=== PATIENT | female | born 1960 | race Caucasian/White ===

== ENCOUNTER 2017-10-09 10:35 | Emergency (ER) | payer OTHER ==
[2017-10-09 10:44] VITALS: BP 139/70
--- NOTE | 2017-10-09 11:26 | XRAY Report ---
EXAM: CHEST RADIOGRAPHY EXAM DATE: 10/09/2017 11:16 AM. CLINICAL HISTORY: Cough. COMPARISON: None. TECHNIQUE: 2 views. FINDINGS: Lungs/Pleura: No focal consolidation evident. No pleural effusion. No pneumothorax. Normal volumes. Mediastinum: Heart and mediastinal contours are unremarkable. Other: None. IMPRESSION: No radiographically apparent acute abnormality in the chest. [facility] Referring Provider Line: [phone] SITE ID: [id number]
--- NOTE | 2017-10-09 11:26 | XRAY Preliminary Report ---
Exam: XR CHEST 2 VIEW X-RAY IMPRESSION: No radiographically apparent acute abnormality in the chest. [facility] SITE ID: [id number]
--- NOTE | 2017-10-09 12:54 | ED Physician Documentation ---
PD HPI URI - Stated complaint Stated Complaint: COUGH/FEVER/THROAT PX - Chief complaint Chief Complaint: Resp - History obtained from History obtained from: Patient - History of Present Illness Timing - onset: How many days ago (several) Timing duration: Days Timing details: Gradual onset, Still present Associated symptoms: Nasal congestion, Dry cough, Dyspnea. No: Fever, Chills, Sore throat, Hemoptysis, Chest pain Contributing factors: COPD / asthma. No: Sick contact, Travel, Immunocompromised Similar symptoms before: Has not had sx before Recently seen: Not recently seen Review of Systems Constitutional: reports: Fever, Chills, Myalgias Nose: reports: Rhinorrhea / runny nose, Congestion Throat: reports: Sore throat Cardiac: denies: Chest pain / pressure Respiratory: reports: Dyspnea, Cough GI: reports: Nausea, Vomiting. denies: Abdominal Pain, Diarrhea : denies: Dysuria, Frequency Skin: denies: Rash, Lesions PD PAST MEDICAL HISTORY - Past Medical History Past Medical History: Yes Neuro: Headache/migraine - Past Surgical History Past Surgical History: Yes HEENT: Tonsil/Adenoidectomy - Present Medications Home Medications: Ambulatory Orders Medication Instructions Recorded Confirmed Aspirin 81 mg PO DAILY 10/09/17 10/09/17 Azithromycin [Zithromax] 250 mg PO DAILY #6 tablet 10/09/17 Beclomethasone 40 Mcg [Qvar 40] 2 puffs INH DAILY #1 inhaler 10/09/17 Benzonatate [Tessalon] 100 mg PO TID PRN #25 capsule 10/09/17 Levalbuterol [Xopenex] 2 puffs INH QID #1 inhaler 10/09/17 Levothyroxine Sodium 25 mcg PO DAILY 10/09/17 10/09/17 Montelukast Sodium 10 mg PO DAILY 10/09/17 10/09/17 - Allergies Allergies/Adverse Reactions: Allergies Allergy/AdvReac Type Severity Reaction Status Date / Time Penicillins Allergy Hives Verified 10/09/17 10:44 - Social History Does the pt smoke?: No Smoking Status: Never smoker PD ED PE NORMAL - Vitals Vital signs reviewed: Yes - General General: Alert and oriented X 3, Well developed/nourished - HEENT HEENT: Pharynx benign - Neck Neck: Supple, no meningeal sign, No adenopathy - Cardiac Cardiac: RRR, No murmur - Respiratory Respiratory: No respiratory distress, Clear bilaterally - Abdomen Abdomen: Soft, Non tender - Derm Derm: Normal color, Warm and dry - Extremities Extremities: No deformity, No tenderness to palpate, No edema, No calf tenderness / cord - Neuro Neuro: Alert and oriented X 3, No motor deficit, Normal speech Results - Vitals Vitals: Oxygen O2 Source Room air - Rads (name of study) chest Radiology: Prelim report reviewed (normal) PD MEDICAL DECISION MAKING - ED course Complexity details: reviewed results, considered differential, d/w patient Departure - Departure Disposition: Home, Self Care Clinical Impression: Upper respiratory tract infection Qualifiers: URI type: unspecified URI Qualified Code(s): J06.9 - Acute upper respiratory infection, unspecified Condition: Stable Record reviewed to determine appropriate education?: Yes Instructions: ED Upper Resp Infec Abx Tx Prescriptions: Azithromycin [Zithromax] 250 mg PO DAILY #6 tablet Beclomethasone 40 Mcg [Qvar 40] 2 puffs INH DAILY #1 inhaler Benzonatate [Tessalon] 100 mg PO TID PRN #25 capsule PRN Reason: Cough Levalbuterol [Xopenex] 2 puffs INH QID #1 inhaler Comments: Drink lots of fluids. Continue your leave albuterol inhaler 2 puffs 4 times a day to use it regularly for the next week and then back to as needed. Use the inhaled steroid daily for the next month. Add Tessalon if needed for cough. You should start feeling better over the next several days to week. Your cough will likely persist for several weeks afterward. Discharge Date/Time: 10/09/17 13:41
== END 2017-10-09 13:41 | disposition home or self-care (01) ==
LOC: ED 10:35
DX: J06.9 Acute upper respiratory infection, unspecified (principal); Z79.82 Long term (current) use of aspirin
CPT/HCPCS: 71046; 99283

== ENCOUNTER 2018-10-12 07:15 | Outpatient (CLI) | payer OTHER ==
--- NOTE | 2018-10-12 12:47 | Ultrasound Report ---
Reason: LEFT LOWER QUADRANT PAIN Procedure Date: 10/12/2018 Accession Number: [id number] / [id number] Procedure: US - Pelvic w/Transvaginal CPT Code: FULL RESULT: EXAM: PELVIC ULTRASOUND EXAM DATE: 10/12/2018 08:30 AM. CLINICAL HISTORY: Left lower quadrant pain. History of fibroids and ovarian cysts. COMPARISON: CT abdomen and pelvis w 08/31/2018 10:45 AM. TECHNIQUE: Realtime transabdominal pelvic scan performed to identify the uterus and adnexa and as an overview of other pelvic structures, followed by transvaginal scan to provide greater detail of the uterus and adnexa, with static image documentation. FINDINGS: Uterus: 7.2 x 4.5 x 5.0 cm, volume 37 cc. Anteverted position. Normal overall size and echotexture. Masses: There are multiple masses, presumably fibroids, the largest of which measures at least 4.6 x 3.6 x 4.2 cm and is in the posterior fundal myometrium with a clear submucosal component. Endometrium: 4 mm. Limited visualization due to distortion and obscuration by the nearby myometrial mass. Cervix: Unremarkable. Right Ovary: 2.6 x 1.5 x 2.0 cm, volume 4.1 cc. A 1.4 cm cyst is compatible with dominant follicle. Normal echotexture and blood flow. Left Ovary: 2.5 x 1.9 x 1.9 cm, volume 4.7 cc. There is a complex cystic solid 3.1 x 1.5 x 2.5 cm mass with vascularity by color Doppler and an echogenic contents. Ovarian parenchyma itself appears normal. Free Fluid: None. Other: None. IMPRESSION: Fibroid uterus with dominant fibroidthat demonstrates a submucosal component, previously also seen on CT. Solid cystic left adnexal mass. Echogenic component suggests possibility of a dermoid cyst but unfortunately no pathognomonic component is identified on the CT or ultrasound. Confirmatory imaging could be performed by MRI. Alternatively, observation by ultrasound or gynecologic evaluation for consideration of laparoscopy. [facility]
== END 2018-10-12 07:16 | disposition home or self-care (01) ==
LOC: DI 07:15
PROVIDERS: ATTEND Nurse Practitioner Family
DX: D25.0 Submucous leiomyoma of uterus (principal); N83.202 Unspecified ovarian cyst, left side; N83.201 Unspecified ovarian cyst, right side; Z85.820 Personal history of malignant melanoma of skin
CPT/HCPCS: 76830; 76856

== ENCOUNTER 2018-11-01 20:14 | Outpatient (CLI) | payer OTHER | END 2018-11-01 20:15 | disposition home or self-care (01) | LOC: LAB 20:14 | PROVIDERS: ATTEND Obstetrics & Gynecology | DX: N94.9 Unspecified condition associated with female genital organs and menstrual cycle (principal) | CPT/HCPCS: 36415; 86304 ==

== ENCOUNTER 2019-02-28 08:53 | Outpatient (CLI) | payer OTHER ==
--- NOTE | 2019-03-12 11:20 | Mammography Report ---
Reason: SCREENING MAMMO Procedure Date: 02/28/2019 Accession Number: [id number] / [id number] Procedure: STEVEN - Screening Mammo w/Rajeev CPT Code: FULL RESULT: EXAM: Screening Mammo w/Rajeev DATE: 02/28/2019 9:22 AM CLINICAL HISTORY: Screening TECHNIQUE: (B) - Bilateral CC and MLO views (2-D and 3-D mammography) were obtained. COMPARISON: 08/28/2015, 06/24/2014 PARENCHYMAL PATTERN: (VD) - The breasts demonstrate extremely dense parenchyma bilaterally, limiting the sensitivity of mammography. FINDINGS: There are no suspicious masses, calcifications, or areas of distortion. IMPRESSION: Negative examination. BI-RADS category 1. RECOMMENDATION: (ANNUAL) - Recommend routine annual screening mammography. BI-RADS CATEGORY: (1) - Negative. STANDARD QUALIFYING STATEMENTS: 1. This examination was not reviewed with the aid of Computer-Aided Detection (CAD). 2. A negative or benign imaging report should not preclude biopsy if clinically suspicious findings are present. 3. Dense breasts may obscure an underlying neoplasm. 4. This examination was reviewed without the aid of 3D breast imaging (tomosynthesis).
== END 2019-02-28 08:54 | disposition home or self-care (01) ==
LOC: DI 08:53
PROVIDERS: ATTEND Nurse Practitioner Family
DX: Z12.31 Encounter for screening mammogram for malignant neoplasm of breast (principal)
CPT/HCPCS: 77063; 77067

== ENCOUNTER 2020-05-18 12:18 | Outpatient (CLI) | payer OTHER | END 2020-05-18 12:19 | disposition home or self-care (01) | LOC: LAB 12:18 | PROVIDERS: ATTEND Nurse Practitioner Family | DX: Z20.828 Contact with and (suspected) exposure to other viral communicable diseases (principal) ==

== ENCOUNTER 2020-07-23 08:03 | Outpatient (CLI) | payer OTHER ==
[2020-07-23 08:44] LABS: ALBUMIN 4.1 g/dL (3.2-5.5); ALBUMIN/GLOBULIN RATIO 1.6 (1.0-2.2); BILIRUBIN,TOTAL 1.3 mg/dL (0.2-1.0); CALCIUM 9.4 mg/dL (8.5-10.3); CREATININE 0.8 mg/dL (0.4-1.0); TOTAL PROTEIN 6.7 g/dL (6.7-8.2)
[2020-07-23 08:58] LABS: T4 (THYROXINE) 6.59 ug/dL (6.09-12.23)
[2020-07-23 09:01] LABS: THYROID STIMULATING HORMONE 2.7 uIU/mL (0.34-5.60)
[2020-07-23 09:02] LABS: FREE T3 3.08 pg/mL (2.5-3.9)
[2020-07-23 09:03] LABS: FREE T4 (FREE THYROXINE) 1.12 ng/dL (0.58-1.64)
== END 2020-07-23 08:04 | disposition home or self-care (01) ==
LOC: LAB 08:03
PROVIDERS: ATTEND Nurse Practitioner Family
DX: E03.9 Hypothyroidism, unspecified (principal); R00.2 Palpitations; Z20.828 Contact with and (suspected) exposure to other viral communicable diseases
CPT/HCPCS: 36415; 80053; 81599; 84436; 84439; 84443; 84481; 84482; 86343; 86376; 86800

== ENCOUNTER 2020-07-23 17:17 | Outpatient (CLI) | payer OTHER | END 2020-07-23 17:18 | disposition home or self-care (01) | LOC: COV 17:17 | PROVIDERS: ATTEND Nurse Practitioner Family | DX: Z20.828 Contact with and (suspected) exposure to other viral communicable diseases (principal) ==

== ENCOUNTER 2020-10-16 11:06 | Outpatient (CLI) | payer OTHER ==
[2020-10-16 11:19] LABS: BASOPHILS % (AUTO) 0.7 %; EOSINOPHILS # (AUTO) 0.1 10^3/uL (0.0-0.7); EOSINOPHILS % (AUTO) 1.4 %; LYMPHOCYTES # (AUTO) 2.2 10^3/uL (1.5-3.5); LYMPHOCYTES % (AUTO) 36.7 %; MEAN CORPUSCULAR HEMOGLOBIN 29.6 pg (27.0-31.0); MEAN CORPUSCULAR HGB CONC 32.8 g/dL (32.0-36.0); MEAN CORPUSCULAR VOLUME 90.5 fL (81.0-99.0); MEAN PLATELET VOLUME 9.2 fL (7.9-10.8); MONOCYTES # (AUTO) 0.4 10^3/uL (0.0-1.0); MONOCYTES % (AUTO) 7.1 %; NEUTROPHILS # (AUTO) 3.2 10^3/uL (1.5-6.6); NEUTROPHILS % (AUTO) 53.9 %; PLT - PLATELET COUNT 266 10^3/uL (130-450); RED BLOOD COUNT 5.06 10^6/uL (4.20-5.40); RED CELL DISTRIBUTION WIDTH 12.6 % (12.0-15.0); WHITE BLOOD COUNT 5.9 x10^3/uL (4.8-10.8)
[2020-10-16 11:41] LABS: CALCIUM 9.8 mg/dL (8.5-10.3); CREATININE 0.8 mg/dL (0.4-1.0)
== END 2020-10-16 11:07 | disposition home or self-care (01) ==
LOC: LAB 11:06
PROVIDERS: ATTEND Internal Medicine Gastroenterology
DX: K57.30 Diverticulosis of large intestine without perforation or abscess without bleeding (principal); R10.30 Lower abdominal pain, unspecified; Z87.19 Personal history of other diseases of the digestive system
CPT/HCPCS: 36415; 80048; 85025

== ENCOUNTER 2021-08-18 14:21 | Outpatient (CLI) | payer OTHER ==
[2021-08-18 14:31] LABS: BASOPHILS % (AUTO) 0.6 %; EOSINOPHILS # (AUTO) 0.1 10^3/uL (0.0-0.7); EOSINOPHILS % (AUTO) 1.4 %; HCT - HEMATOCRIT 45.6 % (37.0-47.0); LYMPHOCYTES # (AUTO) 1.9 10^3/uL (1.5-3.5); LYMPHOCYTES % (AUTO) 30.1 %; MEAN CORPUSCULAR HEMOGLOBIN 29.5 pg (27.0-31.0); MEAN CORPUSCULAR HGB CONC 32.9 g/dL (32.0-36.0); MEAN CORPUSCULAR VOLUME 89.8 fL (81.0-99.0); MEAN PLATELET VOLUME 9.4 fL (7.9-10.8); MONOCYTES # (AUTO) 0.5 10^3/uL (0.0-1.0); MONOCYTES % (AUTO) 7.2 %; NEUTROPHILS # (AUTO) 3.8 10^3/uL (1.5-6.6); NEUTROPHILS % (AUTO) 60.5 %; PLT - PLATELET COUNT 263 10^3/uL (130-450); RED BLOOD COUNT 5.08 10^6/uL (4.20-5.40); RED CELL DISTRIBUTION WIDTH 12.4 % (12.0-15.0); WHITE BLOOD COUNT 6.4 x10^3/uL (4.8-10.8)
[2021-08-18 14:49] LABS: ALBUMIN 4.5 g/dL (3.2-5.5); ALBUMIN/GLOBULIN RATIO 1.7 (1.0-2.2); ALKALINE PHOSPHATASE 69 IU/L (42-121); ALT ALANINE AMINOTRANSFERASE 21 IU/L (10-60); AST ASPARTATE AMINOTRANSFERASE 23 IU/L (10-42); BILIRUBIN,TOTAL 1.2 mg/dL (0.2-1.0); BUN - BLOOD UREA NITROGEN 15 mg/dL (6-20); CALCIUM 9.7 mg/dL (8.5-10.3); CARBON DIOXIDE - CO2 29 mmol/L (21-32); CHLORIDE 97 mmol/L (101-111); CREATININE 0.8 mg/dL (0.4-1.0); GFR - MDRD 72 (>89); GLUCOSE 123 mg/dL (70-100); POTASSIUM 3.7 mmol/L (3.5-5.0); SODIUM 135 mmol/L (135-145); TOTAL PROTEIN 7.1 g/dL (6.7-8.2)
[2021-08-18 14:52] LABS: CRP - C-REACTIVE PROTEIN < 1.0 mg/dL (0-1.0)
== END 2021-08-18 14:22 | disposition home or self-care (01) ==
LOC: LAB 14:21
PROVIDERS: ATTEND Nurse Practitioner Family
DX: R10.32 Left lower quadrant pain (principal)
CPT/HCPCS: 36415; 80053; 85025; 86140

== ENCOUNTER 2021-09-10 09:22 | Outpatient (CLI) | payer OTHER ==
[2021-09-10 10:00] LABS: ALBUMIN/GLOBULIN RATIO 1.5 (1.0-2.2); ALKALINE PHOSPHATASE 57 IU/L (42-121); ALT ALANINE AMINOTRANSFERASE 22 IU/L (10-60); AST ASPARTATE AMINOTRANSFERASE 20 IU/L (10-42); BILIRUBIN,TOTAL 1.3 mg/dL (0.2-1.0); BUN - BLOOD UREA NITROGEN 15 mg/dL (6-20); CALCIUM 9.3 mg/dL (8.5-10.3); CARBON DIOXIDE - CO2 28 mmol/L (21-32); CHLORIDE 100 mmol/L (101-111); CHOL/HDL RATIO 2.5 (<4.4); CHOLESTEROL 169 mg/dL; CREATININE 0.8 mg/dL (0.4-1.0); GFR - MDRD 72 (>89); GLUCOSE 105 mg/dL (70-100); HDL CHOLESTEROL 68 mg/dL; LDL CHOLESTEROL,CALCULATED 90 mg/dL; LDL/HDL RATIO 1.3 (<4.4); SODIUM 138 mmol/L (135-145); TOTAL PROTEIN 6.7 g/dL (6.7-8.2); TRIGLYCERIDES 55 mg/dL; VLDL CHOLESTEROL 11 mg/dL
== END 2021-09-10 09:23 | disposition home or self-care (01) ==
LOC: LAB 09:22
PROVIDERS: ATTEND Physician Assistant
DX: E03.9 Hypothyroidism, unspecified (principal); Z13.1 Encounter for screening for diabetes mellitus; Z13.220 Encounter for screening for lipoid disorders
CPT/HCPCS: 36415; 80053; 80061; 83721; 84443

== ENCOUNTER 2022-02-14 12:46 | Outpatient (CLI) | payer OTHER ==
--- NOTE | 2022-02-14 15:29 | Mammography Report ---
BILATERAL DIGITAL SCREENING MAMMOGRAM 3D/2D: 02/14/2022 CLINICAL: Routine screening. Comparison is made to exams dated: 02/28/2019 mammogram - [facility] and 06/24/2014 mammogram. The tissue of both breasts is predominantly fatty. No significant masses, calcifications, or other findings are seen in either breast. There has been no significant interval change. IMPRESSION: NEGATIVE There is no mammographic evidence of malignancy. A 3 year screening mammogram is recommended. This exam was interpreted at Station ID: [id number]. NOTE: For mammograms, a report in lay terms will be sent to the patient. Approximately 15% of breast malignancies will not be visualized mammographically. In the management of a palpable breast mass, a negative mammogram must not discourage biopsy of a clinically suspicious lesion. Electronically Signed By: Chi Qiu acr/penrad:02/14/2022 14:43:34 ACR BI-RADS Category 1: Negative 3341F PARENCHYMAL PATTERN: (F) - The breast(s) demonstrate(s) diffuse fatty replacement. BI-RADS CATEGORY: (1) - 1 Mammogram [id number] 3 year screening LATERALITY: (B)
== END 2022-02-14 12:47 | disposition home or self-care (01) ==
LOC: DI.N 12:46
PROVIDERS: ATTEND Physician Assistant
DX: Z12.31 Encounter for screening mammogram for malignant neoplasm of breast (principal)

== ENCOUNTER 2022-09-05 13:30 | Emergency (ER) | payer OTHER ==
[2022-09-05] MEDS ORDERED: NIRMATRELVIR/RITONAVIR PREPACK PO STA (13:34)
--- NOTE | 2022-09-05 13:35 | ED Physician Documentation ---
History of Present Illness - Stated complaint Stated Complaint: C+ - History obtained from History obtained from: Patient (She is here with her , she developed symptomatic COVID 2 days ago. She has a history of allergies, migraines, but is generally medically healthy. She would like to go ahead with antiviral therapy.) Review of Systems Constitutional: reports: Chills, Myalgias, Fatigue Nose: reports: Rhinorrhea / runny nose Throat: denies: Sore throat Respiratory: denies: Dyspnea PD PAST MEDICAL HISTORY - Past Surgical History Past Surgical History: Yes HEENT: Tonsil/Adenoidectomy - Present Medications Home Medications: Ambulatory Orders Medication Instructions Recorded Confirmed Aspirin 81 mg PO DAILY 10/09/17 09/05/22 Azithromycin [Zithromax] 250 mg PO DAILY #6 tablet 10/09/17 09/05/22 Beclomethasone 40 Mcg [Qvar 40] 2 puffs INH DAILY #1 inhaler 10/09/17 09/05/22 Benzonatate [Tessalon] 100 mg PO TID PRN #25 capsule 10/09/17 09/05/22 Levalbuterol [Xopenex] 2 puffs INH QID #1 inhaler 10/09/17 09/05/22 Levothyroxine Sodium 25 mcg PO DAILY 10/09/17 09/05/22 Montelukast Sodium 10 mg PO DAILY 10/09/17 09/05/22 - Allergies Allergies/Adverse Reactions: Allergies Allergy/AdvReac Type Severity Reaction Status Date / Time Penicillins Allergy Hives Verified 09/05/22 13:45 - Social History Does the pt smoke?: No Smoking Status: Never smoker PD ED PE NORMAL - Vitals Vital signs reviewed: Yes - General General: Alert and oriented X 3, No acute distress - Neuro Neuro: Alert and oriented X 3, Normal speech - Psych Psych: Normal mood, Normal affect Results - Vitals Vitals: Vital Signs - 24 hr 09/05/22 13:43 Temperature 36.4 C L Heart Rate 66 Respiratory 16 Rate Blood Pressure 136/64 H O2 Saturation 100 Oxygen O2 Source Room air PD MEDICAL DECISION MAKING - ED course ED course: 62-year-old woman who checks in wanting to go ahead with antiviral therapy for her symptomatic COVID and Paxlovid is dispensed. Departure - Departure Disposition: 01 Home, Self Care Clinical Impression: COVID-19 Condition: Stable Record reviewed to determine appropriate education?: Yes Instructions: ED Viral Syndrome Comments: Take antiviral medication per package instructions until gone. Return for new or worsening symptoms. Discharge Date/Time: 09/05/22 14:06
[2022-09-05 13:45] VITALS: BP 136/64
== END 2022-09-05 14:06 | disposition home or self-care (01) ==
LOC: ED 13:30
DX: U07.1 COVID-19 (principal)
CPT/HCPCS: 99282

== ENCOUNTER 2023-01-15 09:30 | Emergency (ER) | payer MEDICARE, OTHER ==
--- NOTE | 2023-01-15 10:05 | XRAY Report ---
PROCEDURE: Chest 1 View X-Ray INDICATIONS: cough TECHNIQUE: One view of the chest was acquired. COMPARISON: None. FINDINGS: Surgical changes and devices: None. Lungs and pleura: No pleural effusions or pneumothorax. Lungs are clear. Mediastinum: Mediastinal contours appear normal. Heart size is normal. Bones and chest wall: No suspicious bony lesions. Overlying soft tissues appear unremarkable. IMPRESSION: Normal chest x-ray Reviewed by: Chi Qiu on 01/15/2023 10:04 AM PDT Approved by: Chi Qiu on 01/15/2023 10:04 AM PDT Station ID: [id number]
[2023-01-15 10:23] LABS: RAPID STREP SCREEN Negative (Negative)
[2023-01-15 11:00] LABS: B. PARAPERTUSSIS- RESP PCR PAN NOT DETECTED; B. PERTUSSIS- RESP PCR PANEL NOT DETECTED; C. PNEUMONIAE- RESP PCR PANEL NOT DETECTED; CORONAVIRUS 229E-RESP PCR NOT DETECTED; CORONAVIRUS HKU1-RESP PCR NOT DETECTED; CORONAVIRUS NL63-RESP PCR NOT DETECTED; CORONAVIRUS OC43-RESP PCR NOT DETECTED; HUMAN METAPNEUMOVIRUS DETECTED; INFLUENZA A- RESP PCR PANEL NOT DETECTED; INFLUENZA B - RESP PCR PANEL NOT DETECTED; M. PNEUMONIAE- RESP PCR PANEL NOT DETECTED; PARAINFLUENZA VIRUS 1 NOT DETECTED; PARAINFLUENZA VIRUS 2 NOT DETECTED; PARAINFLUENZA VIRUS 3 NOT DETECTED; PARAINFLUENZA VIRUS 4 NOT DETECTED; RHINOVIRUS/ENTEROVIRUS NOT DETECTED; RSV- RESP PCR PANEL NOT DETECTED; SARS-CoV-2 -RESP PCR PANEL NOT DETECTED
[2023-01-15] MEDS ORDERED: predniSONE 20 MG TABLET PO STA (11:44)
[2023-01-15] MEDS ORDERED: guaiFENesin/CODEINE 5 ML UDC PO STA (11:44)
[2023-01-15] MEDS ORDERED: BENZONATATE 100 MG CAPSULE PO STA (11:44)
--- NOTE | 2023-01-15 11:46 | ED Physician Documentation ---
PD HPI DYSPNEA - Stated complaint Stated Complaint: SORE THROAT, COUGH, COLD - Chief complaint Chief Complaint: Resp - History obtained from History obtained from: Patient - Additional information Additional information: This is a previously healthy woman has been sick for about 5 days with sore throat, loss of voice, and cough and shortness of breath. She had some low- grade fevers noting that her usual temperature is 96.5 and now it is 98.6. PD PAST MEDICAL HISTORY - Past Surgical History Past Surgical History: Yes HEENT: Tonsil/Adenoidectomy - Present Medications Home Medications: Ambulatory Orders Medication Instructions Recorded Confirmed Aspirin 81 mg PO DAILY 10/09/17 01/15/23 Levalbuterol [Xopenex] 2 puffs INH QID #1 inhaler 10/09/17 01/15/23 Levothyroxine Sodium 25 mcg PO DAILY 10/09/17 01/15/23 Montelukast Sodium 10 mg PO DAILY 10/09/17 01/15/23 Benzonatate [Tessalon] 200 mg PO TID PRN #20 cap 01/15/23 Levalbuterol [Xopenex] 2 puffs INH Q4-6H PRN #15 gm 01/15/23 guaiFENesin/CODEINE [Robitussin AC] 5 - 10 ml PO Q6H PRN #120 ml 01/15/23 predniSONE [Deltasone] 60 mg PO DAILY 5 Days #15 tablet 01/15/23 - Allergies Allergies/Adverse Reactions: Allergies Allergy/AdvReac Type Severity Reaction Status Date / Time Penicillins Allergy Hives Verified 01/15/23 09:41 - Social History Does the pt smoke?: No Smoking Status: Never smoker PD ED PE NORMAL - Vitals Vital signs reviewed: Yes - General General: Alert and oriented X 3, Other (She is well-appearing with laryngitic voice but in no distress.) - HEENT HEENT: Other (Red tonsillar pillars, tonsils are surgically absent. TMs are normal.) - Neck Neck: Supple, no meningeal sign, No bony TTP - Cardiac Cardiac: RRR, No murmur - Respiratory Respiratory: Other (Mild diffuse expiratory wheezing and rhonchi) - Abdomen Abdomen: Non tender - Derm Derm: No rash - Neuro Neuro: Alert and oriented X 3, Normal speech Results - Vitals Vitals: Vital Signs - 24 hr 01/15/23 09:36 Temperature 36.5 C Heart Rate 76 Respiratory 19 Rate Blood Pressure 143/117 H O2 Saturation 98 Oxygen O2 Source Room air - Labs Labs: Laboratory Tests 01/15/23 01/15/23 09:46 09:46 Nasal Adenovirus (PCR) NOT DETECTED Nasal B. parapertussis DNA (PCR) NOT DETECTED Nasal Coronavir 229E PCR NOT DETECTED Nasal Coronavir HKU1 PCR NOT DETECTED Nasal Coronavir NL63 PCR NOT DETECTED Nasal Coronavir OC43 PCR NOT DETECTED Nasal Enterovir/Rhinovir PCR NOT DETECTED Nasal Influenza B PCR NOT DETECTED Nasal Influenza A PCR NOT DETECTED Nasal Parainfluen 1 PCR NOT DETECTED Nasal Parainfluen 2 PCR NOT DETECTED Nasal Parainfluen 3 PCR NOT DETECTED Nasal Parainfluen 4 PCR NOT DETECTED Nasal RSV (PCR) NOT DETECTED Nasal B.pertussis DNA PCR NOT DETECTED Nasal C.pneumoniae (PCR) NOT DETECTED Omar Human Metapneumo PCR DETECTED A Nasal M.pneumoniae (PCR) NOT DETECTED Nasal SARS-CoV-2 (PCR) NOT DETECTED Group A Strep Rapid Negative - Rads (name of study) Single view chest x-ray is unremarkable Relevant Findings:: Final report received, EMP independent interpretation of test PD Medical Decision Making - ED course ED course: [facility] is positive for human metapneumovirus. 62-year-old woman with viral syndrome related to human metapneumovirus, will treat symptomatically and given close return precautions. Departure - Departure Disposition: 01 Home, Self Care Clinical Impression: Infection due to human metapneumovirus (hMPV), Upper respiratory tract inf ection Condition: Good Record reviewed to determine appropriate education?: Yes Instructions: ED Viral Syndrome Prescriptions: predniSONE [Deltasone] 60 mg PO DAILY 5 Days #15 tablet guaiFENesin/CODEINE [Robitussin AC] 5 - 10 ml PO Q6H PRN #120 ml PRN Reason: Cough Benzonatate [Tessalon] 200 mg PO TID PRN #20 cap PRN Reason: Cough Levalbuterol [Xopenex] 2 puffs INH Q4-6H PRN #15 gm PRN Reason: Wheezing Comments: I sent your prescriptions electronically to [facility]. As discussed, we found you positive today for human metapneumovirus. The remainder of your viral panel and strep test and chest x-ray were negative/normal. You should improve over the next few days to later this week. Return if worsening. Codeine-containing cough syrup is a narcotic. Do not drink or drive with it.
[2023-01-15 12:06] VITALS: BP 145/95
== END 2023-01-15 12:06 | disposition home or self-care (01) ==
LOC: ED 09:30
DX: J06.9 Acute upper respiratory infection, unspecified (principal); B97.81 Human metapneumovirus as the cause of diseases classified elsewhere; Z20.822 Contact with and (suspected) exposure to COVID-19
CPT/HCPCS: 71045; 87070; 87430; 87633; 99284; A9270; J7512

== ENCOUNTER 2023-02-16 16:11 | Outpatient (CLI) | payer MEDICARE, OTHER ==
[2023-02-16 16:29] LABS: BASOPHILS % (AUTO) 0.5 %; EOSINOPHILS # (AUTO) 0.2 10^3/uL (0.0-0.7); EOSINOPHILS % (AUTO) 2.5 %; HCT - HEMATOCRIT 43.8 % (37.0-47.0); HGB - HEMOGLOBIN 14.2 g/dL (12.0-16.0); LYMPHOCYTES # (AUTO) 2.5 10^3/uL (1.5-3.5); LYMPHOCYTES % (AUTO) 33.6 %; MEAN CORPUSCULAR HEMOGLOBIN 29.2 pg (27.0-31.0); MEAN CORPUSCULAR HGB CONC 32.4 g/dL (32.0-36.0); MEAN CORPUSCULAR VOLUME 90.1 fL (81.0-99.0); MEAN PLATELET VOLUME 9.5 fL (7.9-10.8); MONOCYTES # (AUTO) 0.5 10^3/uL (0.0-1.0); MONOCYTES % (AUTO) 6.8 %; NEUTROPHILS # (AUTO) 4.1 10^3/uL (1.5-6.6); NEUTROPHILS % (AUTO) 56.5 %; PLT - PLATELET COUNT 215 10^3/uL (130-450); RED BLOOD COUNT 4.86 10^6/uL (4.20-5.40); RED CELL DISTRIBUTION WIDTH 13.1 % (12.0-15.0); WHITE BLOOD COUNT 7.3 x10^3/uL (4.8-10.8)
[2023-02-16 16:40] LABS: ALBUMIN 4.3 g/dL (3.2-5.5); ALBUMIN/GLOBULIN RATIO 1.7 (1.0-2.2); BILIRUBIN,TOTAL 0.6 mg/dL (0.2-1.0); CALCIUM 9.4 mg/dL (8.5-10.3); CREATININE 0.7 mg/dL (0.4-1.0); TOTAL PROTEIN 6.8 g/dL (6.7-8.2)
[2023-02-16 16:58] LABS: THYROID STIMULATING HORMONE 2.52 uIU/mL (0.34-5.60)
== END 2023-02-16 16:12 | disposition home or self-care (01) ==
LOC: LAB 16:11
PROVIDERS: ATTEND Physician Assistant
DX: R53.83 Other fatigue (principal)
CPT/HCPCS: 36415; 80053; 84443; 85025

== ENCOUNTER 2023-02-18 08:53 | Outpatient (CLI) | payer MEDICARE, OTHER ==
--- NOTE | 2023-02-18 09:39 | CT Report ---
PROCEDURE: HEAD WO INDICATIONS: HEAD INJURY TECHNIQUE: Noncontrast 4.5 mm thick angled axial sections acquired from the foramen magnum to the vertex. For r adiation dose reduction, the following was used: automated exposure control, adjustment of mA and/or kV according to patient size. COMPARISON: None. FINDINGS: Image quality: Excellent. CSF spaces: Basal cisterns are patent. No extra-axial fluid collections. Ventricles are normal in size and shape. Brain: No midline shift. No intracranial masses or hemorrhage. Meza-white matter interface is norm al. Skull and face: Calvarium and visualized facial bones are intact, without suspicious lesions. Sinuses: Visualized sinuses and mastoids are clear. IMPRESSION: No acute intracranial abnormality. Reviewed by: Anthony Earl MD on 02/18/2023 8:38 AM DEBRA Approved by: Anthony Earl MD on 02/18/2023 8:38 AM DEBRA Station ID: [id number]
== END 2023-02-18 08:54 | disposition home or self-care (01) ==
LOC: DI 08:53
PROVIDERS: ATTEND Physician Assistant
DX: S09.90XA Unspecified injury of head, initial encounter (principal)

== ENCOUNTER 2023-05-03 10:22 | Outpatient (CLI) | payer MEDICARE, OTHER ==
[2023-05-03 10:49] LABS: CREATININE 0.9 mg/dL (0.6-1.3); CRP - C-REACTIVE PROTEIN 0.5 mg/dL (<0.5)
== END 2023-05-03 10:23 | disposition home or self-care (01) ==
LOC: LAB 10:22
PROVIDERS: ATTEND Internal Medicine Gastroenterology
DX: Z87.19 Personal history of other diseases of the digestive system (principal)
CPT/HCPCS: 36415; 82565; 86140

== ENCOUNTER 2023-05-03 10:38 | Outpatient (CLI) | payer MEDICARE, OTHER ==
[2023-05-03] MEDS ORDERED: BARIUM SULFATE 450 ML BOTTLE PO ONE (11:14)
[2023-05-03] MEDS ORDERED: iohexoL-300 100 ML VIAL IVP ONE (14:55)
--- NOTE | 2023-05-17 04:33 | CT Report ---
PROCEDURE: ABDOMEN/PELVIS W INDICATIONS: HISTORY OF DIVERTICULITIS CONTRAST: 100ml Omni TECHNIQUE: After the administration of contrast, 5 mm thick sections acquired from the diaphragms to the symphys is. 5 mm thick coronal and sagittal reformats were acquired. For radiation dose reduction, the foll owing was used: automated exposure control, adjustment of mA and/or kV according to patient size. COMPARISON: None FINDINGS: Image quality: Excellent. Lung bases and heart: Unremarkable. Liver: Subcentimeter hypoechoic mass is too small to characterized, possible cyst versus hemangioma.2 Gallbladder and biliary tree: Unremarkable Spleen: No splenomegaly. Pancreas: No pancreatic ductal dilation. Adrenals: No adrenal nodule. Kidneys and ureters: No hydronephrosis. No renal cystic lesion which requires follow up. No solid mas s. Bowel and peritoneum: No bowel distension. No pathologic free fluid. Lymph nodes: No central or retroperitoneal adenopathy. Vessels: No infrarenal aortic aneurysm. PELVIS Reproductive organs: Surgically absent Bladder: No abnormal wall thickening. Pelvic lymph nodes: No pelvic adenopathy by size criteria. Bones: No aggressive osseous abnormality. IMPRESSION: . No acute process in the abdomen or pelvis to explain patient's symptoms. No diverticulosis or evide nce of diverticulitis as clinically queried. Reviewed by: Ce Mehta MD on 05/03/2023 4:13 PM PDT Approved by: Ce Mehta MD on 05/03/2023 4:13 PM PDT Station ID: [id number]
== END 2023-05-03 10:39 | disposition home or self-care (01) ==
LOC: DI 10:38
PROVIDERS: ATTEND Internal Medicine Gastroenterology
DX: Z87.19 Personal history of other diseases of the digestive system (principal)
CPT/HCPCS: 36415; 74177; 82565; 86140; A9270; Q9967

== ENCOUNTER 2023-10-16 15:00 | Outpatient (CLI) | payer MEDICARE, OTHER ==
--- NOTE | 2023-10-17 15:37 | Mammography Report ---
BILATERAL DIGITAL SCREENING MAMMOGRAM 3D/2D: 10/16/2023 CLINICAL: Routine screening. Comparison is made to exams dated: 02/14/2022 mammogram, 02/28/2019 mammogram - [facility], and 06/24/2014 mammogram. Both breasts are heterogeneously dense, which may obscure small masses (category c / 51-75% glandular tissue). No significant masses, calcifications, or other findings are seen in either breast. There has been no significant interval change. IMPRESSION: NEGATIVE There is no mammographic evidence of malignancy. A 1 year screening mammogram is recommended. Future imaging is recommended as follows: 10/16/2024 screening mammogram. Based on the Tyrer Cuzick model (a risk assessment model) the patients lifetime risk is 14.9% and her 10 year risk is 7.4%. According to the ACR, ACS, and NCCN guidelines, an annual breast MRI exam joyce g with mammogram is recommended if the patients lifetime risk is 20% or greater. This exam was interpreted at Station ID: [id number]. NOTE: For mammograms, a report in lay terms will be sent to the patient. Approximately 15% of breast malignancies will not be visualized mammographically. In the management of a palpable breast mass, a negative mammogram must not discourage biopsy of a clinically suspicious lesion. Electronically Signed By: Carl brandon/brett:10/17/2023 07:46:41 ACR BI-RADS Category 1: Negative 3341F PARENCHYMAL PATTERN: (D) - The breast(s) demonstrate(s) heterogeneously dense fibroglandular madison wong. BI-RADS CATEGORY: (1) - 1 Mammogram [id number] 1 year screening LATERALITY: (B)
== END 2023-10-16 15:01 | disposition home or self-care (01) ==
LOC: DI 15:00
DX: Z12.31 Encounter for screening mammogram for malignant neoplasm of breast (principal); R92.333 Mammographic heterogeneous density, bilateral breasts

== ENCOUNTER 2023-11-17 09:41 | Outpatient (CLI) | payer MEDICARE, OTHER ==
[2023-11-17 10:04] LABS: ALBUMIN 4.1 g/dL (3.2-5.5); ALBUMIN/GLOBULIN RATIO 1.9 (1.0-2.2); BILIRUBIN,TOTAL 1.1 mg/dL (0.2-1.0); CALCIUM 9.5 mg/dL (8.5-10.3); CREATININE 0.8 mg/dL (0.6-1.3); POTASSIUM 4.2 mmol/L (3.5-4.5); TOTAL PROTEIN 6.3 g/dL (6.4-8.9)
== END 2023-11-17 09:42 | disposition home or self-care (01) ==
LOC: LAB 09:41
PROVIDERS: ATTEND Registered Nurse
DX: E87.8 Other disorders of electrolyte and fluid balance, not elsewhere classified (principal)
CPT/HCPCS: 36415; 80053

== ENCOUNTER 2024-01-06 13:52 | Outpatient (CLI) | payer MEDICARE, OTHER ==
--- NOTE | 2024-01-08 08:51 | MRI Report ---
PROCEDURE: Lumbar Spine WO INDICATIONS: LOW BACK PAIN TECHNIQUE: Noncontrast sagittal T1 spin echo and T2 fast echo, sagittal STIR, axial T1 and T2 fast spin echo thr ough the lumbar spine. In cases with scoliosis, additional coronal T2 fast spin echo may be performe d. COMPARISON: None. FINDINGS: Image quality: Excellent. Alignment and Curvature: There is normal bony alignment. Bone Marrow: Marrow is of normal overall signal. No acute vertebral body compression fractures. Spinal Cord: Conus medullaris terminates at the L1 level. Visualized cord demonstrates normal signa l and size. Paraspinous Soft Tissues: No paravertebral masses. T11-T12: Normal in appearance T12-L1: Normal in appearance. L1-L2: Normal in appearance. L2-L3: Normal in appearance. L3-L4: Minimal disc bulge. Mild facet hypertrophy. No canal stenosis or foraminal stenosis. L4-L5: Mild disc bulge with minimal central posterior disc protrusion. Facet hypertrophy. Borderlin e canal stenosis. No significant foraminal stenosis. L5-S1: Mild chronic disc height loss. Disc bulge. Mild facet hypertrophy. No canal stenosis or fora ame stenosis. IMPRESSION: 1. Relatively mild multilevel facet arthropathy. 2. Borderline canal stenosis at L4-L5. No canal stenosis at other levels. 3. Patent foramina. Reviewed by: Allen Alonzo MD on 01/08/2024 8:50 AM PDT Approved by: Allen Alonzo MD on 01/08/2024 8:50 AM PDT Station ID: [id number]
== END 2024-01-06 13:53 | disposition home or self-care (01) ==
LOC: DI 13:52
PROVIDERS: ATTEND Physician Assistant
DX: M47.816 Spondylosis without myelopathy or radiculopathy, lumbar region (principal); M51.36 Other intervertebral disc degeneration, lumbar region; M48.061 Spinal stenosis, lumbar region without neurogenic claudication; M47.817 Spondylosis without myelopathy or radiculopathy, lumbosacral region

== ENCOUNTER 2024-06-06 07:05 | Outpatient (CLI) | payer MEDICARE, OTHER ==
--- NOTE | 2024-06-06 17:22 | XRAY Report ---
Ankle 3+V RT HISTORY: 64 years of age, R ANKLE PAIN TECHNIQUE: Ankle 3+V RT COMPARISON: None. FINDINGS/IMPRESSION: Punctate ossification about the medial malleolus, representing prior injury. Small plantar calcaneus enthesophyte. No acute fracture or dislocation. Joint spaces are well maintained. Reviewed by: Emani Aguila MD on 06/06/2024 5:20 PM PDT Approved by: Emani Aguila MD on 06/06/2024 5:20 PM PDT Station ID: [id number]
== END 2024-06-06 07:06 | disposition home or self-care (01) ==
LOC: DI 07:05
PROVIDERS: ATTEND Physician Assistant
DX: M25.571 Pain in right ankle and joints of right foot (principal); M77.31 Calcaneal spur, right foot

== ENCOUNTER 2024-06-20 16:00 | Outpatient (CLI) | payer MEDICARE, OTHER ==
--- NOTE | 2024-06-20 23:08 | MRI Report ---
PROCEDURE: Ankle RT WO INDICATIONS: R ANKLE PAIN TECHNIQUE: Noncontrast coronal and sagittal T1 spin echo and STIR; axial T1 spin echo and T2 fast spin echo with fat saturation through the right ankle. COMPARISON: Right ankle x-ray 06/06/2024 FINDINGS: Image quality: Excellent. Bones: Minimal marrow edema at the lateral talar dome (7/27; 8/27) without articular surface collapse . The bone marrow signal is otherwise normal. The anterior process of the calcaneus and lateral proce ss of the talus are intact. No other talar dome osteochondral defect is seen. 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 No significant tibiotalar or subtalar joint effusion. Sinus tarsi: The sinus tarsi signal is normal. Syndesmotic ligaments: The anterior and posterior inferior syndesmotic ligaments are normal. Lateral collateral ligament: There is a chronic-appearing avulsion of the anterior talofibular ligame nt with a heterotopic calcification in the mid substance (5/20). There is thickening of the posterior talofibular ligament without a tear. The calcaneofibular ligament is intact. Deltoid ligament: The visualized components of the deltoid ligament, that being the posterior tibiota lar and tibiospring ligaments, are normal. Calcaneonavicular spring ligament: The superomedial component of the calcaneonavicular spring ligamen t is grossly intact. Tendons: The Achilles tendon is normal. There is a crescentic morphology of the peroneal brevis tendo n at the retromalleolar groove (6/20). The extensor, flexor and peroneal tendons are otherwise normal . The peroneal tendons are appropriately situated within the retromalleolar groove, and the superfici al peroneal retinaculum is intact. Plantar aponeurosis: There is no abnormal thickening of, abnormal intrasubstance signal involving, or perifascial edema about the plantar aponeurosis. Plantar musculature: There is mild fatty atrophy of the the plantar muscles of the foot. Nerves: The visualized nerves are unremarkable. Other: Mild plantar calcaneal enthesopathy (3/11). IMPRESSION: 1.Minimal marrow edema at the lateral talar dome without articular surface collapse, which may repres ent a developing osteochondral defect. 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 3.Chronic sprain of the PTFL without a tear. 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 Reviewed by: Jayden Melton MD on 06/20/2024 11:07 PM PDT Approved by: Jayden Melton MD on 06/20/2024 11:07 PM PDT Station ID: [id number]
== END 2024-06-20 16:01 | disposition home or self-care (01) ==
LOC: DI 16:00
PROVIDERS: ATTEND Physician Assistant
DX: M19.071 Primary osteoarthritis, right ankle and foot (principal); S93.491A Sprain of other ligament of right ankle, initial encounter